=== PATIENT | male | born 1995 | race Caucasian/White ===

== ENCOUNTER 2019-02-16 17:07 | Emergency (ER) | payer OTHER ==
[~2019-02-16] VITALS: Ht 177.8 cm; Wt 69.0 kg
[2019-02-16 17:07] VITALS: BP 146/93
[2019-02-16 20:15] LABS: HEMATOCRIT 45.1 % (42.0-52.0); HEMOGLOBIN 14.8 g/dl (13.5-17.5); MEAN CORPUSCULAR HEMOGLOBIN 29.3 pg (27.0-33.0); MEAN CORPUSCULAR HGB CONC 32.8 g/dl (32.0-36.5); MEAN CORPUSCULAR VOLUME 89.3 fl (80.0-96.0); PLATELET COUNT, AUTOMATED 224 10^3/uL (150-450); RED BLOOD COUNT 5.05 10^6/uL (4.30-6.10); WHITE BLOOD COUNT 6.4 10^3/uL (4.0-10.0)
--- NOTE | 2019-02-16 20:34 | REPVR ---
PROCEDURE INFORMATION: Exam: CT Thoracic Spine Without Contrast Exam date and time: 02/16/2019 7:40 PM Clinical history: 23 years old, male; Numbness; Additional info: Moderate thoracic tenderness, with arm numbness TECHNIQUE: Imaging protocol: Computed tomography images of the thoracic spine without contrast. Radiation optimization: All CT scans at this facility use at least one of these dose optimization techniques: automated exposure control; mA and/or kV adjustment per patient size (includes targeted exams where dose is matched to clinical indication); or iterative reconstruction. COMPARISON: No relevant prior studies available. FINDINGS: Vertebrae: Multilevel Schmorl's nodes. No acute fracture. No spondylolisthesis. Discs/Spinal canal/Neural foramina: No spinal stenosis. Soft tissues: Unremarkable. IMPRESSION: No acute abnormality. Electronically signed by: Vinicius Gaines On 02/16/2019 20:34:14 PM
--- NOTE | 2019-02-16 20:34 | REPVR ---
PROCEDURE INFORMATION: Exam: CT Cervical Spine Without Contrast Exam date and time: 02/16/2019 7:40 PM Clinical history: 23 years old, male; Numbness; Additional info: Right arm numbness, tingling TECHNIQUE: Imaging protocol: Computed tomography images of the cervical spine without contrast. Radiation optimization: All CT scans at this facility use at least one of these dose optimization techniques: automated exposure control; mA and/or kV adjustment per patient size (includes targeted exams where dose is matched to clinical indication); or iterative reconstruction. COMPARISON: No relevant prior studies available. FINDINGS: Vertebrae: No acute fracture. Normal alignment. Discs/Spinal canal/Neural foramina: No spinal stenosis. No neural foraminal narrowing. Other bones/joints: There is a small lucency in the left foramina transversarium anteriorly (series 201, image 25) of C1 vertebra. Soft tissues: Unremarkable. Lungs: Lung apices are normal. IMPRESSION: Small lucency in the left anterior foramina transversarium of C1 vertebra. In the absence of trauma this favors to be a nutrient foramina. Electronically signed by: Vinicius Gaines On 02/16/2019 20:31:54 PM
[2019-02-16 20:52] LABS: FREE T4 1.16 NG/DL (0.76-1.46); MAGNESIUM LEVEL 2.3 MG/DL (1.8-2.4); THYROID STIMULATING HORMONE 2.23 uIU/ML (0.358-3.740)
== END 2019-02-16 21:21 | disposition home or self-care (01) ==
LOC: M ED 17:07
DX: G56.21 Lesion of ulnar nerve, right upper limb (principal); M54.9 Dorsalgia, unspecified; R93.7 Abnormal findings on diagnostic imaging of other parts of musculoskeletal system; Z87.891 Personal history of nicotine dependence; Z82.0 Family history of epilepsy and other diseases of the nervous system